=== PATIENT | female | born 1980 | race Hispanic/Latino ===

== ENCOUNTER 2024-06-19 18:29 | Emergency (ER) | payer OTHER ==
[~2024-06-19] VITALS: Ht 154.9 cm; Wt 58.5 kg
[2024-06-19 19:06] LABS: BASOPHILS # (AUTO) 0.1 (0.0-0.1); BASOPHILS % 0.5 % (0.0-1.0); EOSINOPHILS # (AUTO) 0.2 (0.0-0.4); EOSINOPHILS % 1.8 % (0.0-6.0); HEMATOCRIT 39.5 % (34.2-44.1); HEMOGLOBIN 12.9 g/dL (12.0-16.0); LYMPHOCYTES # (AUTO) 2.7 (1.0-3.2); LYMPHOCYTES % 26.4 % (18.0-39.1); MEAN CORPUSCULAR HEMOGLOBIN 29.4 pg (28-32); MEAN CORPUSCULAR HGB CONC 32.7 g/dL (31-35); MONOCYTES # (AUTO) 0.7 (0.2-0.8); MONOCYTES % 6.4 % (4.4-11.3); NEUTROPHILS # (AUTO) 6.6 (2.1-6.9); NEUTROPHILS % 64.5 % (38.7-80.0); PLATELET COUNT 248 x10e3/uL (140-360); RED BLOOD COUNT 4.39 x10e6/uL (3.6-5.1); WHITE BLOOD COUNT 10.29 x10e3/uL (4.8-10.8)
[2024-06-19] MEDS: SODIUM CHLORIDE 0.9% 1000ML 1,000 ML IV ONE (19:09)
[2024-06-19] MEDS: KETOROLAC TROMETHAMINE 30 MG/ML VIAL IV STA (19:10)
[2024-06-19] MEDS: ONDANSETRON HCL INJ 2MG/ML 2ML 2 MG/ML VIAL IV STA (19:10)
[2024-06-19 19:14] VITALS: TEMP 97.9
[2024-06-19 19:20] LABS: ANION GAP 18.1 mmol/L (8-16); CREATININE, SERUM 0.92 mg/dL (0.57-1.11); POTASSIUM 4.1 mmol/L (3.5-5.1)
[2024-06-19] MEDS ORDERED: IOPAMIDOL 370 MG/ML 100 ML INFUS..BTL INJ ONE (19:40)
[2024-06-19] MEDS ORDERED: DIPHENHYDRAMINE HCL INJ 50 MG/ML VIAL ONE (20:14)
[2024-06-19] MEDS ORDERED: METHYLPREDNISOLONE SOD SUCC 125 MG/2ML VIAL ONE (20:16)
[2024-06-19] MEDS: METHYLPREDNISOLONE SOD SUCC 125 MG/2ML VIAL IV ONE ×2 (20:21)
[2024-06-19] MEDS: DIPHENHYDRAMINE HCL INJ 50 MG/ML VIAL IV ONE ×2 (20:21)
[2024-06-19 20:44] LABS: BILIRUBIN,URINE NEGATIVE (NEGATIVE); CLARITY,URINE CLEAR (CLEAR); COLOR,URINE YELLOW (YELLOW); GLUCOSE, URINE NEGATIVE (NEGATIVE); KETONES,URINE NEGATIVE (NEGATIVE); LEUKOCYTE ESTERASE ,URINE NEGATIVE (NEGATIVE); NITRITE,URINE NEGATIVE (NEGATIVE); PH,URINE 6.5 (5 - 7); PROTEIN,URINE DIPSTICK NEGATIVE (NEGATIVE); URINE UROBILINOGEN 0.2 mg/dL (0.2 - 1)
[2024-06-19 20:50] LABS: BACTERIA,URINE MANY /HPF; EPITHELIAL CELLS,URINE MANY /LPF; TRANSITIONAL EPI CELLS,URINE FEW
[2024-06-19 22:44] VITALS: PULSE 97; RESP 20
[2024-06-19] MEDS ORDERED: CEFDINIR300 MG PO (22:57)
[2024-06-19] MEDS ORDERED: ONDANSETRON ODT4 MG SL (22:57)
[2024-06-19 23:05] VITALS: BP 134/102; PULSE 97; RESP 20; TEMP 98.2; O2SAT 97
== END 2024-06-19 23:06 | disposition home or self-care (01) ==
LOC: ER 18:34
DX: R10.31 Right lower quadrant pain (principal); N39.0 Urinary tract infection, site not specified; N83.201 Unspecified ovarian cyst, right side; S40.811A Abrasion of right upper arm, initial encounter; R11.0 Nausea; K76.0 Fatty (change of) liver, not elsewhere classified
CPT/HCPCS: 36415; 74177; 80048; 81001; 85025; 99284; J1200; J1885; J2405; J2919; J7030; Q9967